=== PATIENT | male | born 1990 | race Caucasian/White ===

== ENCOUNTER 2018-08-13 08:56 | Emergency (ER) | payer OTHER, SELFPAY ==
[2018-08-13 08:59] VITALS: BP 137/55; PULSE 70; RESP 14; TEMP 36.6; O2SAT 96
--- NOTE | 2018-08-13 09:07 | W.ED.GENAD ---
Discharge Plan Disposition Patient Disposition: HOME Condition: Stable Discharge Details Chief Complaint: Nk/Back Pain Clinical Impression: Strain of fascia of lower back ED Provider: Myron Manzano Home Meds and New Rx's Prescriptions: New cyclobenzaprine 10 mg tablet 10 mg PO TID PRN (Reason: muscle spasm) Qty: 30 RF: 0 gabapentin 300 mg capsule 300 mg PO TID Qty: 30 RF: 0 No Action naproxen sodium [Aleve] 220 mg Tablet 220 mg PO BID PRNRF: 0 Discharge Instructions Instructions: Acute Low Back Pain (ED), Lower Back Exercises (ED) Additional Instructions: you can take 1000mg tylenol and 600mg ibuprofen every 6 hours for pain as needed do not drink alcohol or drive if you take the flexeril (cyclobenzaprine) follow up with your primary care provider within 2 weeks if you have fevers or inability to urinate return to the emergency department Stand Alone Forms: Physical Therapy Referral Medical Decision Making 28 yo male comes in with lower back pain since yesterday. HE states he bent down and lifted two gas cans and felt lower back pain. No trauma, no fevers, no difficulty urinating. Has pain in the lumbar region without erythema or warmth or stepoff deformities. HAs no saddle anesthesia on exam and distal motor and sensation is normal. Denies fevers, ivdu. N ofindings to suggest sea or cauda equina so do not feel emergent mri indicated. No systemic symptoms to suggest osteo or cancer so do not feel iamging of back indicated and given lack of trauma doubt fx/dislocation and do not feel xray/ct indicated. NO abdominal pain s odoubt intraabdominal pathology at this time. I suspect muscle spasm vs lumbar strain and will start muscle relaxers, also could be disc herniation. Will refer to PT and advised f/u with pcp and return precautions given Differential Diagnosis lumbar strain, muscle spasm, disc herniation HPI General Mode of arrival: ambulatory. Date/Time Provider Initiated Documentation: 08/13/18 09:00. Limitations to Documentation: no limitations. Information obtained by: patient. History of Present Illness 28 year old M presents to the emergency department with the chief complaint of back pain, described as severe, with intensity rated at 8. Quality is described as aching and sharp, and is localized to the back. Patient reports no radiation. Patient started experiencing this day(s) (1) and it has been constant. No relieving factors improve symptom(s), and other things that improve symptom(s), (standing) Rest worsens symptoms . Patient notes no other symptoms.. Patient did receive the following treatments prior to arrival, NSAID Related Data Home Medications Medication Instructions Recorded Confirmed cyclobenzaprine 10 mg PO TID PRN #30 tab 08/13/18 gabapentin 300 mg PO TID #30 cap 08/13/18 naproxen sodium [Aleve] 220 mg PO BID PRN 08/13/18 08/13/18 Previous Rx's Medication Instructions Recorded cyclobenzaprine 10 mg PO TID PRN #30 tab 08/13/18 gabapentin 300 mg PO TID #30 cap 08/13/18 Allergies Allergy/AdvReac Type Severity Reaction Status Date / Time No Known Allergies Allergy Unverified 08/13/18 09:03 General Stated Complaint: Nk/Back Pain MARCIAL: 3 Review of Systems Review of Systems All systems reviewed & are unremarkable except as noted in HPI and below Constitutional Denies chills, Denies fever(s) and Denies weakness ENT Denies change in voice Cardiovascular Denies chest pain and Denies dyspnea Respiratory Denies dyspnea Gastrointestinal Denies abdominal pain, Denies nausea and Denies vomiting Genitourinary Denies dysuria Musculoskeletal Denies joint swelling Integumentary/Breasts Denies rash Neurologic Denies weakness [facility] Social History Smoking/Tobacco Use Status: Current every day Exam Const General: no acute distress Orientation: alert HENMT Head: normal to inspection Ears: external ears normal General nose exam: external nose normal Mouth: moist mucous membranes Eyes General: appearance normal, both eyes and all related structures Neck Neck: normal visual inspection Resp Effort & Inspection: normal respiratory effort and able to speak in complete sentences Cardio Rate: regular rate Back/Spine/Pelvis Back: no CVA tenderness and No erythema Skin General skin exam: no rashes or lesions noted Neuro General: alert and oriented x3 Extrem General: normal to inspection Psych Mental Status: mental status grossly normal Course Vital Signs Temperature 36.6 C 08/13/18 08:59 Pulse 70 08/13/18 08:59 Respiratory Rate 14 08/13/18 08:59 Blood Pressure 137/55 L 08/13/18 08:59 Pulse Oximetry 96 08/13/18 08:59 Temperature 36.6 C 08/13/18 08:59 Temperature Source Temporal Artery Scan 08/13/18 08:59 Pulse 70 08/13/18 08:59 Respiratory Rate 14 08/13/18 08:59 Respiratory Effort Non-Labored 08/13/18 09:01 Blood Pressure 137/55 L 08/13/18 08:59 Blood Pressure Position Standing 08/13/18 08:59 Pulse Oximetry 96 08/13/18 08:59 Oxygen Delivery Method Room Air 08/13/18 08:59 Oxygen Flow Rate 0 08/13/18 08:59 Pain Level 10 08/13/18 08:59
[2018-08-13] MEDS: Cyclobenzaprine 10 MG TAB (09:09)
--- NOTE | 2018-08-13 09:11 | ED.GENADUL_ITS ---
Discharge Plan Disposition Patient Disposition: HOME Condition: Stable Discharge Details Chief Complaint: Nk/Back Pain Clinical Impression: Strain of fascia of lower back ED Provider: Myron Manzano Home Meds and New Rx's Prescriptions: New cyclobenzaprine 10 mg tablet 10 mg PO TID PRN (Reason: muscle spasm) Qty: 30 RF: 0 gabapentin 300 mg capsule 300 mg PO TID Qty: 30 RF: 0 No Action naproxen sodium [Aleve] 220 mg Tablet 220 mg PO BID PRNRF: 0 Discharge Instructions Instructions: Acute Low Back Pain (ED), Lower Back Exercises (ED) Additional Instructions: you can take 1000mg tylenol and 600mg ibuprofen every 6 hours for pain as needed do not drink alcohol or drive if you take the flexeril (cyclobenzaprine) follow up with your primary care provider within 2 weeks if you have fevers or inability to urinate return to the emergency department Stand Alone Forms: Physical Therapy Referral Medical Decision Making 28 yo male comes in with lower back pain since yesterday. HE states he bent down and lifted two gas cans and felt lower back pain. No trauma, no fevers, no difficulty urinating. Has pain in the lumbar region without erythema or warmth or stepoff deformities. HAs no saddle anesthesia on exam and distal motor and sensation is normal. Denies fevers, ivdu. N ofindings to suggest sea or cauda equina so do not feel emergent mri indicated. No systemic symptoms to suggest osteo or cancer so do not feel iamging of back indicated and given lack of trauma doubt fx/dislocation and do not feel xray/ct indicated. NO abdominal pain s odoubt intraabdominal pathology at this time. I suspect muscle spasm vs lumbar strain and will start muscle relaxers, also could be disc herniation. Will refer to PT and advised f/u with pcp and return precautions given Differential Diagnosis lumbar strain, muscle spasm, disc herniation HPI General Mode of arrival: ambulatory . Date/Time Provider Initiated Documentation: 08/13/18 09:00 . Limitations to Documentation: no limitations . Information obtained by: patient . History of Present Illness 28 year old M presents to the emergency department with the chief complaint of back pain, described as severe, with intensity rated at 8. Quality is described as aching and sharp, and is localized to the back. Patient reports no radiation. Patient started experiencing this day(s) (1) and it has been constant. No relieving factors improve symptom(s), and other things that improve symptom(s), (standing) Rest worsens symptoms . Patient notes no other symptoms.. Patient did receive the following treatments prior to arriv al, NSAID Related Data Home Medications Medication Instructions Recorded Confirmed cyclobenzaprine 10 mg PO TID PRN #30 tab 08/13/18 gabapentin 300 mg PO TID #30 cap 08/13/18 naproxen sodium [Aleve] 220 mg PO BID PRN 08/13/18 08/13/18 Previous Rx's Medication Instructions Recorded cyclobenzaprine 10 mg PO TID PRN #30 tab 08/13/18 gabapentin 300 mg PO TID #30 cap 08/13/18 Allergies Allergy/AdvReac Type Severity Reaction Status Date / Time No Known Allergies Allergy Unverified 08/13/18 09:03 General Stated Complaint: Nk/Back Pain MARCIAL: 3 Review of Systems Review of Systems All systems reviewed & are unremarkable except as noted in HPI and below Constitutional Denies chills, Denies fever(s) and Denies weakness ENT Denies change in voice Cardiovascular Denies chest pain and Denies dyspnea Respiratory Denies dyspnea Gastrointestinal Denies abdominal pain, Denies nausea and Denies vomiting Genitourinary Denies dysuria Musculoskeletal Denies joint swelling Integumentary/Breasts Denies rash Neurologic Denies weakness [facility] Social History Smoking/Tobacco Use Status: Current every day Exam Const General: no acute distress Orientation: alert HENUT Head: normal to inspection Ears: external ears normal General nose exam: external nose normal Mouth: moist mucous membranes Eyes General: appearance normal, both eyes and all related structures Neck Neck: normal visual inspection Resp Effort & Inspection: normal respiratory effort and able to speak in complete sentences Cardio Rate: regular rate Back/Spine/Pelvis Back: no CVA tenderness and No erythema Skin General skin exam: no rashes or lesions noted Neuro General: alert and oriented x3 Extrem General: normal to inspection Psych Mental Status: mental status grossly normal Course Vital Signs Temperature 36.6 C 08/13/18 08:59 Pulse 70 08/13/18 08:59 Respiratory Rate 14 08/13/18 08:59 Blood Pressure 137/55 L 08/13/18 08:59 Pulse Oximetry 96 08/13/18 08:59 Temperature 36.6 C 08/13/18 08:59 Temperature Source Temporal Artery Scan 08/13/18 08:59 Pulse 70 08/13/18 08:59 Respiratory Rate 14 08/13/18 08:59 Respiratory Effort Non-Labored 08/13/18 09:01 Blood Pressure 137/55 L 08/13/18 08:59 Blood Pressure Position Standing 08/13/18 08:59 Pulse Oximetry 96 08/13/18 08:59 Oxygen Delivery Method Room Air 08/13/18 08:59 Oxygen Flow Rate 0 08/13/18 08:59 Pain Level 10 08/13/18 08:59
== END 2018-08-13 09:24 | disposition home or self-care (01) ==
PROVIDERS: Emergency Provider Emergency Medicine
DX: S39.012A Strain of muscle, fascia and tendon of lower back, initial encounter (principal); X50.0XXA Overexertion from strenuous movement or load, initial encounter
CPT/HCPCS: 99283